=== PATIENT | female | born 1955 | race Caucasian/White ===

== ENCOUNTER 2016-11-01 19:30 | Emergency (ER) | payer BC ==
--- NOTE | 2016-11-01 19:36 | PDOC ---
History of Present Illness - General History Source: Patient Exam Limitations: No Limitations - History of Present Illness Initial Comments: 11/01/16 20:39 The patient is a 61 year old female, with a significant past medical history of PE and ovarian cancer (currently going through chemotherapy), who presents to the emergency department with a head injury. She reports one hour prior to her ER visit, falling and tripping on a sidewalk today hitting her head on the sidewalk step. Denies any LOC. She reports since the injury having swelling of the left side of her scalp with active bleeding coming from a laceration on her forehead. Patient is on xarelto for her recent pulmonary embolism and currently undergoing chemotherapy. She denies recent fevers, chills, headache or dizziness. She denies recent nausea, vomit, diarrhea or constipation. She denies any neck pain. Allergies: Sulfa Past surgical history: None reported. Social history: Nonsmoker. Denies EtOH and drug use. <Benito Navarro - Last Filed: 11/01/16 21:13> <Jane Holbrook - Last Filed: 11/02/16 03:58> - General Chief Complaint: Injury Stated Complaint: HEAD INJURY/LAC Time Seen by Provider: 11/01/16 19:34 Past History <Benito Navarro - Last Filed: 11/01/16 21:13> <Jane Holbrook - Last Filed: 11/02/16 03:58> - Past Medical History Allergies/Adverse Reactions: Allergies Allergy/AdvReac Type Severity Reaction Status Date / Time Sulfa (Sulfonamide Allergy Verified 11/01/16 19:32 Antibiotics) FOOD COLORING Allergy Uncoded 11/01/16 19:32 Home Medications: Ambulatory Orders Rivaroxaban [Xarelto -] 20 mg PO DAILY 11/01/16 Review of Systems - Review of Systems All Other Systems: Reviewed and Negative <Benito Navarro - Last Filed: 11/01/16 21:13> *Physical Exam - Physical Exam Comments: 11/01/16 20:39 GENERAL: The patient is awake, alert, and fully oriented, in no acute distress. HEAD: 3cm by 2cm area of tenderness and swelling on the left parietal region of the scalp with non bleeding abrasions on the central area of the contusion. EYES: Pupils equal, round and reactive to light, extraocular movements intact, sclera anicteric, conjunctiva clear with no pallor. ENT: Ears normal, nares patent, oropharynx clear without exudates. Moist mucous membranes. NECK: Normal range of motion, supple without lymphadenopathy, JVD, or masses. LUNGS: Breath sounds equal, clear to auscultation bilaterally. No wheeze/ crackles. HEART: Regular rate and rhythm, normal S1 and S2 without murmur or rub. ABDOMEN: Soft/nontender/nondistended. BS wnl. No guarding or rebound. No palpable masses. No hepatosplenomegaly. EXTREMITIES: Normal range of motion, no edema. No clubbing or cyanosis. No cords , erythema, or tenderness. NEUROLOGICAL: Cranial nerves II through XII grossly intact. Normal speech, normal gait. PSYCH: Normal mood, normal affect. SKIN: Warm, Dry, normal turgor, no rashes or lesions noted. <Benito Navarro - Last Filed: 11/01/16 21:13> Progress Note - Progress Note Progress Note: Documentation has been prepared under my direction and personally reviewed by me in its entirety. I attest that this documented accurately reflects all work, treatment, procedures and medical decision making performed by me. <Jane Holbrook - Last Filed: 11/02/16 03:58> Medical Decision Making - Medical Decision Making As noted above, 61-year-old woman with a history of ovarian cancer and pulmonary embolus (on Xarelto) presents with history of mechanical fall just prior to presentation (fell on uneven sidewalk after leaving a restaurant). Patient had no loss of consciousness; exam as noted above :she has contusion in the left parietal area of her scalp that is tender and has small area of abrasion in the central area. There is no active bleeding. Otherwise, patient has no evidence of acute neurologic deficit or other injury. Noncontrast head CT shows no evidence of acute intracranial pathology. Results discussed with the patient. The contusion/abrasion was cleansed with sterile normal saline and bacitracin applied to the surface. . Patient will continue applying bacitracin daily to the wound She should return to the emergency room if she has persistent headache or develops lightheadedness/nausea/vomiting. <Jane Holbrook - Last Filed: 11/02/16 03:58> *DC/Admit/Observation/Transfer - Attestations Scribe Attestion: 11/01/16 19:40 Documentation prepared by Benito Navarro, acting as medical coordinator pesticide use for Jane Holbrook MD. <Benito Navarro - Last Filed: 11/01/16 21:13> <Jane Holbrook - Last Filed: 11/02/16 03:58> Diagnosis at time of Disposition: Contusion of scalp Qualifiers: Encounter type: initial encounter Qualified Code(s): S00.03XA - Contusion of scalp, initial encounter Closed head injury Qualifiers: Encounter type: initial encounter Qualified Code(s): S09.90XA - Unspecified injury of head, initial encounter - Discharge Dispostion Disposition: HOME Condition at time of disposition: Stable - Patient Instructions Printed Discharge Instructions: DI for Closed Head Injury Additional Instructions: keep head elevated as much as possible for 24 hours bacitracin to wound daily for 5 days return to ER if you have worsening pain/vomiting/lethargy followup with your general doctor within the next 5 days
[2016-11-01 19:50] VITALS: BP 149/89; PULSE 107; TEMP 98.1; BMI 19.5
== END 2016-11-01 21:08 | disposition home or self-care (01) ==
LOC: FER 19:30
DX: S00.03XA Contusion of scalp, initial encounter (principal); S09.90XA Unspecified injury of head, initial encounter; Z86.711 Personal history of pulmonary embolism; Z79.01 Long term (current) use of anticoagulants; Z85.43 Personal history of malignant neoplasm of ovary; W18.39XA Other fall on same level, initial encounter; Y93.01 Activity, walking, marching and hiking; Y92.480 Sidewalk as the place of occurrence of the external cause
CPT/HCPCS: 70450-TC; 99282-25